=== PATIENT | female | born 1985 | race Caucasian/White ===

== ENCOUNTER → 2025-02-11 08:53 | Outpatient (BNVA) | payer MEDICAID, SELFPAY | PROVIDERS: Visit Provider Nurse Practitioner Women's Health | DX: N91.2 Amenorrhea, unspecified (principal); Z32.01 Encounter for pregnancy test, result positive | CPT/HCPCS: 81025; 84702; 86850; 86900 ==

== ENCOUNTER → 2025-03-10 08:53 | Outpatient (BNVA) | payer MEDICAID, SELFPAY | PROVIDERS: Visit Provider Nurse Practitioner Women's Health | DX: O26.899 Other specified pregnancy related conditions, unspecified trimester (principal); Z3A.00 Weeks of gestation of pregnancy not specified; Z67.91 Unspecified blood type, Rh negative; Z87.59 Personal history of other complications of pregnancy, childbirth and the puerperium | CPT/HCPCS: 80053; 80307; 82950; 83036; 84315; 85025; 86592; 86762; 86803; 87086; 87340; 87491; 87591; 87661; 87806 ==

== ENCOUNTER → 2025-03-12 08:00 | Outpatient (BNVA) | payer MEDICAID, SELFPAY | PROVIDERS: Visit Provider Nurse Practitioner Women's Health | DX: O09.299 Supervision of pregnancy with other poor reproductive or obstetric history, unspecified trimester (principal); Z3A.00 Weeks of gestation of pregnancy not specified; Z86.32 Personal history of gestational diabetes | CPT/HCPCS: 82951; 82952 ==

== ENCOUNTER 2025-03-19 02:11 | Emergency (ER) | payer MEDICAID, SELFPAY ==
[2025-03-19 02:23] VITALS: BP 124/67; PULSE 78; RESP 16; TEMP 36.5; O2SAT 100; BMI 31.1
[2025-03-19 02:29] VITALS: BP 120/68; PULSE 73; O2SAT 100
--- NOTE | 2025-03-19 03:47 | W.ED.SKABFB ---
HPI - Skin/Abscess/Foreign Bdy General: Chief complaint: Skin/Abscess/Foreign Body Stated complaint: has some kind of rash all over Time Seen by Provider: 03/19/25 02:24 History of Present Illness: Patient is a 40-year-old female at approximately 14 weeks gestation presents with a chief complaint of pruritic rash on her extremities. Patient states it has been ongoing for 3 days. Patient denies lip, tongue, facial swelling. Patient denies shortness of breath, wheezing. No abdominal pain, nausea, vomiting. Patient denies pelvic pain, abnormal vaginal discharge or bleeding. She denies dysuria or hematuria. Patient has not used any new lotions or creams and has not eaten anything unusual. She does not have a history of allergic reactions. Patient has not taken any medications and is not currently on any medications. Of note, patient's dogs have been undergoing treatment for fleas. Related Data Home Medications ?Medication ?Instructions ?Recorded ?Confirmed ascorbic acid (vitamin C) 1,000 mg 1,000 mg PO DAILY 02/11/25 03/10/25 capsule aspirin 81 mg tablet 81 mg PO DAILY 02/11/25 03/10/25 bupropion HCl 150 mg 24 hr tablet, 150 mg PO QAM 02/11/25 03/10/25 extended release (Wellbutrin XL) cyanocobalamin (vitamin B-12) 1,000 mcg PO DAILY 02/11/25 03/10/25 1,000 mcg tablet,extended release escitalopram oxalate 10 mg tablet 10 mg PO DAILY 02/11/25 03/10/25 gegxso-gwyhhhjh-lhxkgjj cap PO 02/11/25 03/10/25 (pork)4,000-25,000-20,000 unit capsule,del rel magnesium 250 mg tablet 250 mg PO BID 02/11/25 03/10/25 milk thistle seed extract 175 mg 175 mg PO DAILY 02/11/25 03/10/25 capsule multivitamin 1 tab PO DAILY 02/11/25 03/10/25 Previous Rx's ?Medication ?Instructions ?Recorded metoclopramide HCl 5 mg tablet 5 mg PO DAILY #30 tabs 02/11/25 (Reglan) vits no.126-ferrous fum 1 tab PO DAILY #60 tabs 02/23/25 28 mg iron-folic acid 800 mcg tablet (Classic ) blood-glucose meter (Blood Glucose #1 ea 03/15/25 Monitoring kit) hydrocortisone 2.5 % topical cream 1 applic topical TID 7 days #30 03/19/25 grams Allergies Allergy/AdvReac Type Severity Reaction Status Date / Time cefuroxime (From Ceftin) Allergy Mild Unknown Verified 03/19/25 02:29 [facility] ED PFSH: Medical History (Updated 03/19/25 @ 03:51 by Marli Ricketts MD) No pertinent past medical history neghx: htn, dm, thyroid, dvt/pe PCP: [facility] History History of appendectomy 1998 done at [facility] Family History Father Hypertension Diabetes Mother Thyroid disease Social History Smoking and tobacco/nicotine status: current every day tobacco/nicotine user Female Reproductive History: Date of last menstrual period: 12/21/24 Physical Exam Narrative: EXAM NARRATIVE: Vital signs were reviewed. Patient is alert and oriented. Patient is breathing comfortably, no increased WOB or accessory muscle use. SpO2 is above 95% on RA. No lip, tongue, uvula swelling. Patient has clear lungs b/l, no rhonchi, wheezing or crackles. Patient is moving all extremities, no deformity or gross injury. +Rash on extremities which appear to be consistent w/insect bites. AC fossa affected b/l. Course Vital Signs: Vital signs: Vital Signs Temperature 97.7 F 03/19/25 02:23 Pulse Rate 73 03/19/25 02:29 Respiratory Rate 16 03/19/25 02:23 Blood Pressure 120/68 03/19/25 02:29 Pulse Oximetry 100 03/19/25 02:29 Oxygen Delivery Me thod Room Air 03/19/25 02:29 MDM - Skin/Abscess/Foreign Bdy Medicial Decision Making 5-year-old female at 14 weeks gestation presents with a chief complaint of rash and itching for 3 days. Differential diagnosis includes but is not limited to, insect bites, urticaria, drug-induced rash, cellulitis, abscess, psoriasis or eczema. On exam, patient is HemoCue stable, nontoxic-appearing. Her presentation is not consistent with anaphylaxis. In the setting of flea infestation at home, I suspect insect bites from fleas. Due to her , I feel that the safest initial step is topical steroids. Patient is appropriate for outpatient care and follow-up. Patient was counseled on supportive care at home, given return precautions and discharged in stable condition with recommendation for outpatient follow-up with primary care nurse or doctor. No radiology studies performed this visit Discharge Plan Discharge Patient Disposition: Home Clinical Impression: Bug bite Condition: Stable Prescriptions: New hydrocortisone 2.5 % cream 1 applic topical TID 7 Days Qty: 30 0RF No Action multivitamin Tablet 1 tab PO DAILY cyanocobalamin (vitamin B-12) 1,000 mcg tablet extended release 1,000 mcg PO DAILY rqzbaq-idupezze-hrozfer (pork) 4,000-25,000- 20,000 unit capsule,delayed release(DR/EC) PO magnesium 250 mg tablet 250 mg PO BID aspirin 81 mg tablet 81 mg PO DAILY escitalopram oxalate 10 mg tablet 10 mg PO DAILY bupropion HCl [Wellbutrin XL] 150 mg tablet extended release 24 hr 150 mg PO QAM milk thistle seed extract 175 mg capsule 175 mg PO DAILY Rx Instructions: give with meal/snack ascorbic acid (vitamin C) 1,000 mg capsule 1,000 mg PO DAILY metoclopramide HCl [Reglan] 5 mg tablet 5 mg PO DAILY Qty: 30 1RF Classic 28 mg iron- 800 mcg tablet 1 tab PO DAILY Qty: 60 0RF Rx Instructions: take once daily (DME) blood-glucose meter [Blood Glucose Monitoring] Kit See Rx Instructions .MEDSUPPLY Qty: 1 0RF Rx Instructions: please include test strips, lancets, and alcohol wipes Check blood sugar fasting in the morning and two hours after each meal for a total of four times daily Discharge Orders: Discharge ED (Routine); Ordered 03/19/25 Ordered By: Marli Ricketts Patient Instructions: Opioid Safety, Pain Management, Patient Portal & [place] Instructions, Insect Bite or Sting (ED) Activity Restrictions/Additional Instructions: Please use prescribed steroid cream for itching. You may use this 3 times a day for the next week. It is very important that you get your pets treated for fleas as soon as possible. Continue to monitor your condition closely at home. If your condition worsens or additional concerns arise, please return to the emergency department for reassessment. Make a follow-up appointment with your primary care physician within 1 week. 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
[2025-03-19 03:54] VITALS: BP 111/69; PULSE 86; O2SAT 97
== END 2025-03-19 03:58 | disposition home or self-care (01) ==
PROVIDERS: Emergency Provider Emergency Medicine
DX: R21 Rash and other nonspecific skin eruption (principal); W57.XXXA Bitten or stung by nonvenomous insect and other nonvenomous arthropods, initial encounter; Z79.82 Long term (current) use of aspirin; Z72.0 Tobacco use
CPT/HCPCS: 99283

== ENCOUNTER → 2025-03-24 10:27 | Outpatient (BNVA) | payer MEDICAID, SELFPAY | PROVIDERS: Visit Provider Obstetrics & Gynecology | DX: O09.299 Supervision of pregnancy with other poor reproductive or obstetric history, unspecified trimester (principal); Z3A.00 Weeks of gestation of pregnancy not specified | CPT/HCPCS: 84315; 87624 ==